=== PATIENT | female | born 1930 | race Caucasian/White ===

== ENCOUNTER 2019-02-10 14:41 | Inpatient (IN) | payer OTHER ==
[2019-02-10] VITALS (13 sets, daily range): BP systolic 111–207; BP diastolic 61–96
[~2019-02-10] VITALS: Ht 157.5 cm; Wt 63.5 kg
[~2019-02-10 14:41] MED LIST: ASPIR 8181 M1 PO; ATIVAN0.5 M1 PO; ATIVAN0.5 MG PO; CRESTOR10 MG PO; KEPPRA 500 MG500 M1 PO; LOSARTAN POTAS100 MG PO; SERTRALINE HCL25 M1 PO; VERAPAMIL ER100 MG PO
[2019-02-10 15:32] LABS: HEMATOCRIT 40.5 % (37.0-47.0); HEMOGLOBIN 13.6 gm/dL (12.0-15.0); MCH 28.9 pg (26.0-34.0); MCHC 33.6 g/dL (28.0-37.0); MCV 86.2 fL (80.0-100.0); RDW 14.2 % (10.5-14.5); WBC 19.2 thou/uL (4.0-11.0)
[2019-02-10 15:43] LABS: ANION GAP 15 mmol/L (7-16); BUN 44 mg/dL (7-18); CALCIUM 10.6 mg/dL (8.5-10.1); CHLORIDE 99 mmol/L (98-107); CO2 22 mmol/L (21-32); GLUCOSE 136 mg/dL (74-106); POTASSIUM 3.1 mmol/L (3.5-5.1); SODIUM 136 mmol/L (136-145)
[2019-02-10 15:47] LABS: BE(vivo) 1.2 mmol/L (-2 to +3); HCO3 21.2 mmol/L (22.0-26.0); PCO2 22.5 mmHg (35.0-45.0); PO2 68.5 mmHg (80.0-100.0); pH 7.593 (7.360-7.450); sO2 96.4 % (92.0-98.0)
[2019-02-10 15:52] LABS: ALBUMIN 3.3 g/dL (3.4-5.0); MAGNESIUM 2.2 mg/dL (1.8-2.4); SGOT 20 U/L (15-37); SGPT 15 U/L (30-65); TOTAL PROTEIN 7.5 g/dL (6.4-8.2); TROPONIN-I <0.06 ng/mL (<0.06)
[2019-02-10 15:58] LABS: ABSOLUTE NEUTROPHILS 16.9 thou/uL (1.4-8.2); PLATELET COUNT 92 thou/uL (150-400); PLATELET ESTIMATE NORMAL
[2019-02-10 16:00] LABS: APTT 34.9 Seconds (24.5-32.8); D-DIMER 2.3 ug/mLFEU (0.19-0.50); PROTIME 10.8 Seconds (9.3-11.4)
[2019-02-10 16:49] LABS: URINE BLOOD 3+ (Negative); URINE CLARITY CLOUDY; URINE COLOR YELLOW; URINE GLUCOSE-RANDOM* NEGATIVE (Negative); URINE KETONES NEGATIVE (Negative); URINE NITRITE-REFLEX NEGATIVE (Negative); URINE PROTEIN (DIPSTICK) 3+ (Negative); URINE SPECIFIC GRAVITY 1.025 (1.005-1.035)
[2019-02-10 16:50] LABS: ICTOTEST (BILI CONFIRMATORY) Negative (Negative); URINE BILIRUBIN NEGATIVE (Negative); URINE LEUKOCYTES-REFLEX 2+ (Negative)
[2019-02-10 16:57] LABS: AMP/METHAMP Negative (Negative); BARBITURATES Negative (Negative); BENZODIAZEPINES Negative (Negative); COCAINE Negative (Negative); METHADONE Negative (Negative); OPIATES Negative (Negative); PCP Negative (Negative)
[2019-02-10 17:19] LABS: CASTS None Seen /LPF (None Seen); CRYSTALS None Seen /LPF (None Seen); SQUAMOUS 4-10 Moderate /LPF (0-3); URINE WBC-REFLEX >25 Many /HPF (0-5)
[2019-02-10 17:19] LABS: HEMATOCRIT 37.4 % (37.0-47.0); HEMOGLOBIN 12.6 gm/dL (12.0-15.0); MCH 28.9 pg (26.0-34.0); MCHC 33.6 g/dL (28.0-37.0); MCV 86.2 fL (80.0-100.0); RBC 4.34 mil/uL (4.20-5.00); RDW 14.4 % (10.5-14.5); WBC 17.6 thou/uL (4.0-11.0)
[2019-02-10 17:20] LABS: BACTERIA-REFLEX >30 Many /HPF (None Seen); URINE RBC 0-2 Rare /HPF (0-2)
--- NOTE | 2019-02-10 17:57 | NUR ---
PHARMACY HAS NOT SENT SPREADSHEET FOR HEPARIN ADMINISTRATION. PHONED PHARMACY X 3 WHO STATES THEY DID NOT HAVE WEIGHT. HT AND WEIGHT DOCUMENTED UPON PT ARRIVAL. PHARMACIST LOOKED AGAIN WHILE THIS NURSE REMAINED ON THE PHONE AT THIS TIME AND STATES THEY SEE WEIGHT AND WILL SEND SHEET NOW
--- NOTE | 2019-02-10 18:16 | NUR ---
PT HAD ROOM ASSIGNED TO 3W. SPOKE TO HOUSE SUP AND CLARIFIED PT IS TO GO TO ICU.
[2019-02-10] MEDS ORDERED: PRILOSEC 20 MG20 MG PO (18:22)
[2019-02-10] MEDS ORDERED: PRILOSEC OTC20 MG PO (18:23)
[2019-02-10] MEDS ORDERED: POTASSIUM99 M1 PO (18:24)
[2019-02-10] MEDS ORDERED: MELATONIN5 M4 PO (18:25)
[2019-02-10] MEDS ORDERED: ZANTAC 150MG T150 MG PO (18:27)
[2019-02-10] MEDS ORDERED: ZOLOFT50 MG PO (18:28)
[2019-02-10] MEDS ORDERED: VERAPAMIL ER180 M1 PO (18:28)
[2019-02-10] MEDS ORDERED: COZAAR 25 MG TA25 M2 PO (18:29)
[2019-02-10] MEDS ORDERED: GLUCOSAMINE CH1 EAC2 PO (18:32)
--- NOTE | 2019-02-10 19:00 | NUR ---
A VERY DELIGHTFUL LITTLE 88 Y/O FEMALE PT OF DR ORDOÑEZ ADMITTED TO ICU FROM ER WITH AMS SOA AND POSITIVE D DIMER PT IS AWAKE AND ALERT ORIENTED X 3 SINUS RHYTHM. LUNGS CLEAR. HEPARIN GTT INFUSING PER PROTOCAL. WILL CONT TO MONITOR CLOSELY.
[2019-02-11] VITALS (40 sets, daily range): BP systolic 134–199; BP diastolic 51–153
[2019-02-11 05:07] LABS: HEMATOCRIT 33.8 % (37.0-47.0); HEMOGLOBIN 11.3 gm/dL (12.0-15.0); MCH 28.9 pg (26.0-34.0); MCHC 33.6 g/dL (28.0-37.0); MCV 86.1 fL (80.0-100.0); RBC 3.92 mil/uL (4.20-5.00); RDW 14.3 % (10.5-14.5); WBC 14.6 thou/uL (4.0-11.0)
--- NOTE | 2019-02-11 06:00 | NUR ---
PT AWAKE AND ALERT. DENIES PAIN NOR DISCOMFORT. AFEBRILE. REMAINS ON HEPARIN GTT PER PROTOCAL. V Q SCAN NEGATIVE. URINE OUTPUT 1000 CC. PT IS IN GOOD SPIRITS. BATHED. NEURO INTACT. A VERY SWEET LITTLE LADY. WILL CONT TO MONITOR
[2019-02-11 06:34] LABS: CALCIUM 9.2 mg/dL (8.5-10.1); CREATININE 1.6 mg/dL (0.6-1.0); POTASSIUM 3.2 mmol/L (3.5-5.1)
--- NOTE | 2019-02-11 09:41 | EKG ---
[place] [address] [facility] [place] [address] ELECTROCARDIOGRAM REPORT Name: RADHA LEDBETTER Room #: 246-P ADM IN M.R.#: [id number] ������������������ Admission: 02/10/19 ������������������ Attend Phys: Vineet Rose MD Discharge: ������������������ Date of : [birth year] Report #: [id number] ����������������������������������������������������������������� [id number] THIS REPORT FOR: //name// [facility] ED Test Date: 2019-02-10 Test Time: 15:34:56 Pat Name: RADHA LEDBETTER Department: Room: 246 Gender: F Specialty Molder: TSTORCK : 1930 Requested By: Ben John Order Number: [id number] MD: Herve Pruitt Measurements Intervals [place] Rate: 80 P: 44 ME: 172 QRS: 40 QRSD: 85 T: 41 QT: 380 QTc: 439 Interpretive Statements Sinus rhythm Possible inferior infarct, old Compared to ECG 11/26/2016 15:53:00 No significant change was found Electronically Signed On 02-11-2019 9:41:26 CDT by Herve Pruitt [email or web address] ��������������������������������������������� <ELECTRONICALLY SIGNED> ���������������������������������������� By: Herve Pruitt MD, [facility] ��������������������������������������������� 02/11/19 0941 1534 153 Herve Pruitt MD, FAC /EPI
--- NOTE | 2019-02-11 12:19 | 2DMMODE ---
[facility] [address] [place] [address] 2 D/M-MODE ECHOCARDIOGRAM Name: RADHA LEDBETTER Room #: 246-P [facility] IN ..#: [id number] ������������� Admission: 02/10/19 ������������� Attend Phys: Vineet Rose MD Discharge: ��� ������������� ��� Date of : [birth year] Date of Service: 02/11/19 1218 �� Report #: [id number] �������� ��������������������������������������������[id number] THIS REPORT FOR: //name// APPROVED REPORT Study performed: 02/11/2019 11:24:40 EXAM: Comprehensive 2D, Doppler, and color-flow Echocardiogram Patient Location: ICU Room #: 246 Status: routine BSA: 1.65 HR: 73 bpm BP: 111/84 mmHg Rhythm: NSR Other Information Study Quality: Technically Difficult Technically limited study due to pt sitting up in chair. Indications Hypertension/HDD elevated BNP 2D Dimensions RVDd: 33.06 mm IVSd: 14.05 (7-11mm) LVOT Diam: 18.67 (18-24mm) LVDd: 35.45 mm PWd: 12.75 (7-11mm) Ascending Ao: 28.01 (22-36mm) LVDs: 23.94 (25-40mm) Aortic Root: 24.55 mm IVC: 23.00 mm Volumes Left Atrial Volume (Systole) Single Plane 4CH: 58.89 mL Single Plane 2CH: 37.01 mL LA ESV Index: 35.00 mL/m2 Aortic Valve AoV Peak Louis.: 1.47 m/s AO Peak Gr.: 8.63 mmHg LVOT Max P.57 mmHg LVOT Max V: 0.80 m/s SANJUANITA Vmax: 1.49 cm2 Mitral Valve [facility] [address] [place] [address] 2 D/M-MODE ECHOCARDIOGRAM Name: LEDBETTERRADHA Kasey Room #: [facility]#: [id number] ������������� Admission: 02/10/19 ������������� Attend Phys: Vineet Rose MD Discharge: ��� ������������� ��� Date of : [birth year] Date of Service: 02/11/19 1218 �� Report #: [id number] �������� ��������������������������������������������[id number] E/A Ratio: 0.5 MV Decel. Time: 327.95 ms MV E Max Louis.: 0.57 m/s MV A Louis.: 1.04 m/s MV PHT: 95.11 ms IVRT: 138.41 ms Pulmonary Valve PV Peak Louis.: 1.04 m/s PV Peak Gr.: 4.31 mmHg Pulmonary Vein P Vein S: 0.63 m/s P Vein A: 0.34 m/s P Vein D: 0.34 m/s P Vein A Dur.: 115.3 msec P Vein S/D Ratio: 1.85 Tricuspid Valve TR Peak Louis.: 2.72 m/s RAP Estimate: 10.00 mmHg TR Peak Gr.: 29.49 mmHg PA Pressure: 40.00 mmHg Left Ventricle The left ventricle is normal size. Mild concentric left ventricular hypertrophy. The left ventricular systolic function is normal. The left ventricular ejection fraction is within the normal range. LVEF is 55%. Mild diastolic dysfunction is present (impaired relaxation pattern). Right Ventricle The right ventricle is normal size. The right ventricular systolic function is normal. Atria Left atrium is mildly dilated. The right atrium size is normal. Aortic Valve Aortic valve is mildly calcified. No aortic regurgitation is present. There is no aortic valvular stenosis. Mitral Valve The mitral valve is normal in structure. Mild mitral regurgitation. No evidence of mitral valve stenosis. Tricuspid Valve The tricuspid valve is normal in structure. Mild to moderate tricuspid regurgitation. PAP is estimated at [address] [address] 2 D/M-MODE ECHOCARDIOGRAM Name: RADHA LEDBETTER Room #: 246-P [facility] IN ..#: [id number] ������������� Admission: 02/10/19 ������������� Attend Phys: Vineet Rose MD Discharge: ��� ������������� ��� Date of : [birth year] Date of Service: 02/11/19 1218 �� Report #: [id number] �������� ��������������������������������������������[id number] Pulmonic Valve The pulmonary valve is normal in structure. Trace pulmonic regurgitation. Great Vessels The aortic root is normal in size. IVC is dilated and collapses >50% with inspiration. Pericardium There is no pericardial effusion. <Conclusion> The left ventricle is normal size. Mild concentric left ventricular hypertrophy. The left ventricular systolic function is normal. Mild diastolic dysfunction is present (impaired relaxation pattern). The right ventricle is normal size. Left atrium is mildly dilated. The right atrium size is normal. Aortic valve is mildly calcified. Mild mitral regurgitation. Mild to moderate tricuspid regurgitation. PAP is estimated at 40 mmHg. ��������������������������������������������� <ELECTRONICALLY SIGNED> ���������������������������������������� By: Jarrell Lares MD ��������������������������������������������� 02/11/19 1218 1218 1218 Jarrell Lares MD /INF
--- NOTE | 2019-02-11 14:34 | NUR ---
CM ASSESSMENT: CASE OPENED FOR DC PLANNING. CLNICAL INFO REVIEWED. PT ADMITTED THRU ER WITH AMS, HTN. PT IS ALERT AND ORIENTED X4 AT TIME OF ASSESSMENT. PT LIVES IN HOUSE, 1 STEP TO ENTER, LIVING AREA 1 LEVEL. PT'S 66 Y.O. DTR LIVES WITH HER, AND PT HAS 3 SONS LIVING LOCALLY. 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 PT IS INDEPENDENT WITH ADLS, USES CANE AND HAS SHOWER CHAIR, HAS WHEEL CHAIR BUT NOT USING. NEEDS ASSIST WITH IADLS AND PT STATES OTHER FAMILY ASSIST WHEN ABLE. PT HAS MEALS ON WHEELS AND USES MICROWAVE MOSTLY. PT RARELY DRIVES, SONS OR HER GOOD FRIEND FRIEND SHEILA DRIVE PT AND DTR TO APPTS AND ERRANDS. NO PREVIOUS HH OR REHAB STAYS. PT/OT EVALS PENDING. OT RECOMMENDATION HOME WITH HOME HEALTH. PT WANTS TO RETURN HOME AND OPEN TO HOME HEALTH. PT ALSO WOULD CONSIDER SKILLED REHAB STAY IF NEEDED. REVIEWED CHOICE FORM WITH PT AND PROVIDED PT WITH HH LIST OF PROVIDERS AND IN [facility] SKILLED LIST. PT WILL REVIEW AND PROVIDE CM WITH CHOICES FOR REFERRAL. PT WIITHOUT AD/DPOA AND INTERESTED IN INFO SO PAMPHLET WITH DOCUMENTS PROVIDED FOR REVIEW. PT STATES WOULD NAME SON BLANCA AGENT FOR MEDICAL POA AND GIVES PERMISSION FOR CM TO SPEAK WITH BLANCA. SPOKE WITH BLANCA BY PHONE. BLANCA CONFIRMS SISTER ABLE TO BE WITHOUT 24 HR SUPERVISION AND STATES HE AND SIBLINGS CHECKING ON HER DAILY. BLANCA IS AGREEABLE TO BEING NAMED AGENT FOR MEDICAL POA AND CONFIRMS HE IS ON PT'S BANK ACCOUNTS AND OVERSEES THEM. BLANCA AGREEABLE TO HOME HEALTH VS REHAB STAY INDICATED. PT TO TRANSFER TO SENIOR SUITES TODAY. UPDATE TO CM/AIRFIELD MANAGER FOR SENIOR SUITES.
--- NOTE | 2019-02-11 15:50 | NUR ---
PT IS ALERT AND ORIENTED X4. FORGETFULL AT TIMES. SITING UP IN THE CHAIR PT HAD PT/OT THERAPY TODAY. LUNGS ARE CLEAR ON ROOM AIR. ABDOMEN IS SOFT. TOLERATING DIET WELL. X1 PERIOD OF DIARHEA TODAY. FAMILY AT BEDSIDE FOR SUPPORT. BLOOD PRESSURE MEDICATIONS RESTARTED PT TAKES AT [facility]. SCDS ON BILATERAL AND FALL SOCKS ON. UP WITH ASSSIST X1. REPORT GIVEN TO MARTA RN TO ASSUME CARE PT AND BELONGINGS TAKEN TO ROOM 429.
--- NOTE | 2019-02-11 18:26 | NUR ---
ASSUMED CARE AT 1700. PATIENT CAME FROM ICU. BP ELEVATED, PRN HYDRALAZINE GIVEN. WILL CONTINUE TO ASSESS AND ASSIST WITH ADLs NEEDED.
[2019-02-12 00:20] VITALS: BP 146/52
--- NOTE | 2019-02-12 04:40 | NUR ---
ASSUMED CARE AT FROM DAY SHIFT PT ALERT AND OREINTED X3 DENIES SOA OR CHEST ASSSITED TO BSC WITH MUCH ASSIST PT VERY WEAK. BED ALARM ON FOR SAFETY. DISCUSSED PLAN OF CARE AND PT VERBALIZED UNDERSTANDING AND AGREEABLE. WILL CONINTUE WITH CURRENT PLAN OF CARE.
[2019-02-12 05:20] VITALS: BP 187/61; BP 95/52
[2019-02-12 07:28] VITALS: BP 151/54
[2019-02-12 08:28] LABS: CALCIUM 9.2 mg/dL (8.5-10.1); CREATININE 1.7 mg/dL (0.6-1.0)
[2019-02-12 10:50] VITALS: BP 151/54
--- NOTE | 2019-02-12 10:52 | NUR ---
Following for d/c planning needs. Spoke with son and pt. Pt would like to have home health services. Physician in agreement with plan. Pt was given choices and wants to use [facility]. Patient choice letter signed and placed on chart. Notified [facility] of d/c. No other needs identified.
[2019-02-12 12:22] VITALS: BP 151/54
--- NOTE | 2019-02-12 12:27 | NUR ---
ASSUMED CARE OF PT AT 0700. ASSESSMENT CHARTED. A&O,X4. DENIES PAIN. WEAKNESS NOTED. ROOM AIR. NO SOA OR CHEST PAIN. SKIN INTACT. LOW K+ THIS AM, PHYSICIAN NOTIFIED. PO POTASSIUM GIVEN ORDERED X2 DOSES. NEW DISCHARGE ORDERS. IV REMOVED, NO ACTIVE BLEEDING. SONS AT BEDSIDE TO TAKE PT HOME. DISCHARGE INFORMATION GIVEN TO PT AND FAMILY. NO NEW SCRIPTS. PT LEFT IN STABLE CONDITION VIA WHEELCHAIR AT 12:19 FOR HOME WITH HH. PT STATES NO QUESTIONS OR CONCERNS.
== END 2019-02-12 12:20 | disposition home health service (06) | DRG 871 ==
LOC: ER 14:41 → EROBS 17:21 → ICU 17:21 → 4E 02-11 16:40 → ENTRNSPT 02-12 12:12 → EDTRNSPTSTS 02-12 12:13 → 4E 02-12 12:20
PROVIDERS: Emergency Medicine; ADMIT Hospitalist
DX: A41.9 Sepsis, unspecified organism (principal); G92 Toxic encephalopathy; N39.0 Urinary tract infection, site not specified; E87.2 Acidosis; E87.3 Alkalosis; R80.9 Proteinuria, unspecified; I11.0 Hypertensive heart disease with heart failure; E78.5 Hyperlipidemia, unspecified; I50.9 Heart failure, unspecified; Z79.899 Other long term (current) drug therapy
CPT/HCPCS: 10078; 10084; 10183; 10203

== ENCOUNTER 2019-08-21 15:44 | Emergency (ER) | payer OTHER ==
[~2019-08-21] VITALS: Ht 152.4 cm; Wt 63.5 kg
[~2019-08-21 15:44] MED LIST changes: +COZAAR 25 MG TA25 M2 PO; +GLUCOSAMINE CH1 EAC2 PO; +MELATONIN5 M4 PO; +POTASSIUM99 M1 PO; +PRILOSEC 20 MG20 MG PO; +PRILOSEC OTC20 MG PO; +VERAPAMIL ER180 M1 PO; +ZANTAC 150MG T150 MG PO; +ZOLOFT50 MG PO
[2019-08-21 15:51] VITALS: BP 202/156
[2019-08-21 17:07] LABS: HEMATOCRIT 37.9 % (37.0-47.0); HEMOGLOBIN 12.6 gm/dL (12.0-15.0); MCH 28.6 pg (26.0-34.0); MCHC 33.3 g/dL (28.0-37.0); MCV 85.9 fL (80.0-100.0); PLATELET COUNT 152 thou/uL (150-400); RBC 4.42 mil/uL (4.20-5.00); RDW 14.9 % (10.5-14.5); WBC 7.2 thou/uL (4.0-11.0)
[2019-08-21 17:26] LABS: ALBUMIN 3.4 g/dL (3.4-5.0); BUN 23 mg/dL (7-18); CALCIUM 9.6 mg/dL (8.5-10.1); CHLORIDE 95 mmol/L (98-107); CO2 25 mmol/L (21-32); CREATININE 1.1 mg/dL (0.6-1.0); GLUCOSE 97 mg/dL (74-106); MAGNESIUM 2.1 mg/dL (1.8-2.4); SGOT 15 U/L (15-37); SGPT 14 U/L (30-65); TOTAL BILIRUBIN 0.7 mg/dL (<0.1-1.0); TOTAL PROTEIN 6.5 g/dL (6.4-8.2); TROPONIN-I <0.06 ng/mL (<0.06)
[2019-08-21 17:30] LABS: ANION GAP < 0 mmol/L (7-16); POTASSIUM 2.6 mmol/L (3.5-5.1); SODIUM 116 mmol/L (136-145)
[2019-08-21 17:40] LABS: ABSOLUTE NEUTROPHILS 5.2 thou/uL (1.4-8.2)
[2019-08-21 17:41] LABS: ANISOCYTOSIS 1+
--- NOTE | 2019-08-21 19:07 | NUR ---
TALKED TO [facility] TRANSPORT TEAM, THEY WILL CONTACT NURSE PRACTIONER TO ADMIT
--- NOTE | 2019-08-21 19:08 | NUR ---
REPORT GIVEN TO ROLO NEWMAN
--- NOTE | 2019-08-21 20:22 | NUR ---
REPORT GIVEN TO RADHA SETH ON TELEMETRY UNIT AT [facility], PT IS GOING TO ROOM 301 B. REQUEST FOR AMBULANCE TRANSPORTATION SENT.PT NOW AWAITING FOR TRANSPORT TO [facility].
[2019-08-21 20:58] VITALS: BP 211/79
--- NOTE | 2019-08-22 11:26 | EKG ---
[address] [address] ELECTROCARDIOGRAM REPORT Name: RADHA LEDBETTER Room #: DEP Ted#: [id number] Admission: 08/21/19 Attend Phys: Discharge: 08/21/19 Date of : [birth year] Report #: [id number] THIS REPORT FOR: //name// [facility] ED Test Date: 2019-08-21 Test Time: 17:03:40 Pat Name: RADHA LEDBETTER Department: Room: [facility] Gender: F Timber Girdler: KMMerle : 1930 Requested By: Jessica Hill Order Number: [id number] MD: Frank Gomez Measurements Intervals [place] Rate: 69 P: 55 SC: 184 QRS: 58 QRSD: 86 T: 38 QT: 395 QTc: 423 Interpretive Statements Sinus rhythm Compared to ECG 02/10/2019 15:34:56 Myocardial infarct finding no longer present Electronically Signed On 08-22-2019 11:26:21 RUG FRAME MOUNTER by Frank Gomez [email or web address] <ELECTRONICALLY SIGNED> By: Frank Gomez MD 08/22/19 1126 1703 1703 MD BASHIR Narayanan
== END 2019-08-21 21:02 | disposition short-term general hospital (02) ==
LOC: ER 15:44 → EROBS 18:34 → ER 18:34
PROVIDERS: Nurse Practitioner Family
DX: S22.080A Wedge compression fracture of T11-T12 vertebra, initial encounter for closed fracture (principal); R42 Dizziness and giddiness; I10 Essential (primary) hypertension; E87.6 Hypokalemia; E87.1 Hypo-osmolality and hyponatremia; N13.30 Unspecified hydronephrosis; M54.5 Low back pain; R19.00 Intra-abdominal and pelvic swelling, mass and lump, unspecified site; Z98.890 Other specified postprocedural states; W18.39XA Other fall on same level, initial encounter; Y93.89 Activity, other specified; Y92.89 Other specified places as the place of occurrence of the external cause; Y99.8 Other external cause status